=== PATIENT | male | born 1980 | race Hispanic/Latino ===

== ENCOUNTER 2018-08-14 09:54 | Emergency (ER) | payer SELFPAY ==
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
[2018-08-14] MEDS ORDERED: IBUPROFEN 400 MG TAB ONE (10:52)
[2018-08-14] MEDS ORDERED: DIPHENHYDRAMINE 25 MG TAB/CAP ONE (10:52)
== END 2018-08-14 10:59 | disposition home or self-care (01) ==
LOC: ER 09:54
DX: T63.441A Toxic effect of venom of bees, accidental (unintentional), initial encounter (principal); K21.9 Gastro-esophageal reflux disease without esophagitis; Z72.0 Tobacco use
CPT/HCPCS: 99283